=== PATIENT | female | born 1935 | race Caucasian/White ===

== ENCOUNTER 2016-09-22 14:44 | Emergency (ER) | payer MEDICARE ==
[2016-09-22 15:48] LABS: BILIRUBIN NEGATIVE (NEGATIVE); BLOOD NEGATIVE Ery/uL (NEGATIVE); CLARITY CLEAR (CLEAR); COLOR YELLOW (YELLOW); GLUCOSE (U) NORMAL (NORMAL); KETONE (U) NEGATIVE (NEGATIVE); LEUKOCYTES NEGATIVE Leu/uL (NEGATIVE); NITRITE NEGATIVE (NEGATIVE); PROTEIN NEGATIVE (NEGATIVE); UROBILINOGEN 0.2 mg/dL (0.2-1.0); pH 6.5 (5.0-9.0)
[2016-11-02] MEDS ORDERED: GARAMYCIN20 DROPS/M OS (12:45)
[2016-11-02] MEDS ORDERED: ZOLOFT100 M1 PO (12:45)
[2016-11-02] MEDS ORDERED: OMEPRAZOLE40 MG PO (12:45)
[2016-11-02] MEDS ORDERED: CARTIA XT180 MG PO (12:46)
[2016-11-02] MEDS ORDERED: VITAMIN B-121000 MC1 PO (12:46)
[2016-11-02] MEDS ORDERED: HYDROCODONE-APA1 TAB PO (12:46)
[2016-11-02] MEDS ORDERED: FEOSOL325 MG PO (12:46)
[2016-11-02] MEDS ORDERED: NEURONTIN600 MG PO (12:46)
[2016-11-02] MEDS ORDERED: BUSPIRONE HCL15 MG PO (12:47)
== END 2016-09-22 16:39 | disposition home or self-care (01) ==
LOC: FER 14:44
PROVIDERS: Emergency Medicine
DX: R30.0 Dysuria (principal); M16.11 Unilateral primary osteoarthritis, right hip; R35.0 Frequency of micturition; I10 Essential (primary) hypertension; I48.91 Unspecified atrial fibrillation; E78.5 Hyperlipidemia, unspecified; Z79.01 Long term (current) use of anticoagulants; Z79.899 Other long term (current) drug therapy; Z93.3 Colostomy status
CPT/HCPCS: 73502; 81003; 99283

== ENCOUNTER 2016-09-25 18:10 | Emergency (ER) | payer MEDICARE ==
[2016-11-02] MEDS ORDERED: OMEPRAZOLE40 MG PO (12:45)
[2016-11-02] MEDS ORDERED: GARAMYCIN20 DROPS/M OS (12:45)
[2016-11-02] MEDS ORDERED: ZOLOFT100 M1 PO (12:45)
[2016-11-02] MEDS ORDERED: VITAMIN B-121000 MC1 PO (12:46)
[2016-11-02] MEDS ORDERED: FEOSOL325 MG PO (12:46)
[2016-11-02] MEDS ORDERED: NEURONTIN600 MG PO (12:46)
[2016-11-02] MEDS ORDERED: CARTIA XT180 MG PO (12:46)
[2016-11-02] MEDS ORDERED: HYDROCODONE-APA1 TAB PO (12:46)
[2016-11-02] MEDS ORDERED: BUSPIRONE HCL15 MG PO (12:47)
== END 2016-09-25 20:37 | disposition home or self-care (01) ==
LOC: FER 18:10
DX: R04.0 Epistaxis (principal); I10 Essential (primary) hypertension; I48.91 Unspecified atrial fibrillation; J44.9 Chronic obstructive pulmonary disease, unspecified; Z79.01 Long term (current) use of anticoagulants; Z79.899 Other long term (current) drug therapy
CPT/HCPCS: J1030

== ENCOUNTER 2016-11-06 22:47 | Inpatient (IN) | payer MEDICARE ==
[~2016-11-06] VITALS: Ht 142.2 cm; Wt 68.9 kg
[~2016-11-06 22:47] MED LIST: BUSPIRONE HCL15 MG PO; CARTIA XT180 MG PO; FEOSOL325 MG PO; GARAMYCIN20 DROPS/M OS; HYDROCODONE-APA1 TAB PO; NEURONTIN600 MG PO; OMEPRAZOLE40 MG PO; VITAMIN B-121000 MC1 PO; ZOLOFT100 M1 PO
[2016-11-07 00:27] LABS: BASOPHIL 0.1 % (0-2); EOSINOPHIL 0 % (0-7); HCT 33.5 % (37.0-47.0); HGB 10.5 g/dl (12.5-16.0); LYMPHOCYTE 2.9 % (15-48); MCH 26.9 pg (25.0-31.0); MCHC 31.3 g/dL (32.0-36.0); MCV 85.9 fL (78.0-100.0); MPV 11.7 fL (6.0-9.5); PLT 190 K/uL (150-400); RDW 23.6 % (11.5-14.0); WBC 16.6 K/uL (4.0-10.5)
[2016-11-07 01:03] LABS: LACTIC ACID 1.7 mmol/L (0.5-2.2)
[2016-11-07 01:05] LABS: ALBUMIN 3.3 g/dL (3.4-4.8); BILIRUBIN - TOTAL 0.5 mg/dL (0.1-1.0); CREATININE 1.5 mg/dL (0.5-1.0); GLOBULIN (CALCULATION) 2.6 g/dL (2.2-4.2); POTASSIUM 3.3 mmol/L (3.5-5.1); TOTAL PROTEIN 5.9 g/dL (6.4-8.3)
[2016-11-07 01:36] LABS: TROPONIN T 0.034 ng/mL
[2016-11-07 03:40] LABS: BILIRUBIN NEGATIVE (NEGATIVE); BLOOD 2+ Ery/uL (NEGATIVE); CLARITY CLEAR (CLEAR); COLOR YELLOW (YELLOW); GLUCOSE (U) NORMAL (NORMAL); KETONE (U) NEGATIVE (NEGATIVE); LEUKOCYTES 3+ Leu/uL (NEGATIVE); NITRITE NEGATIVE (NEGATIVE); PROTEIN 2+ mg/dL (NEGATIVE); SPECIFIC GRAVITY 1.015 (1.001-1.030); pH 6.5 (5.0-9.0)
[2016-11-07 03:47] LABS: BACTERIA 3+
[2016-11-07 03:51] LABS: AMPHETAMINES NEGATIVE (NEGATIVE); BARBITURATES NEGATIVE (NEGATIVE); BENZODIAZEPINES NEGATIVE (NEGATIVE); COCAINE NEGATIVE (NEGATIVE); MARIJUANA (THC) POSITIVE (NEGATIVE); METHADONE NEGATIVE (NEGATIVE); TRICYCLIC ANTIDEPRESSANT NEGATIVE (NEGATIVE)
[2016-11-07 06:47] LABS: BASOPHIL 0.1 % (0-2); EOSINOPHIL 0.1 % (0-7); HCT 31.8 % (37.0-47.0); HGB 9.9 g/dl (12.5-16.0); LYMPHOCYTE 2.8 % (15-48); MCH 27.1 pg (25.0-31.0); MCHC 31.1 g/dL (32.0-36.0); MCV 87.1 fL (78.0-100.0); MONOCYTE 5.4 % (0-12); MPV 11.4 fL (6.0-9.5); NEUTROPHIL 91.6 % (41-80); PLT 184 K/uL (150-400); RBC 3.65 M/uL (4.20-5.40); RDW 23.7 % (11.5-14.0)
[2016-11-07 07:03] LABS: ALBUMIN 3.3 g/dL (3.4-4.8); BILIRUBIN - TOTAL 0.5 mg/dL (0.1-1.0); CREATININE 1.7 mg/dL (0.5-1.0); GLOBULIN (CALCULATION) 2.4 g/dL (2.2-4.2); POTASSIUM 3.5 mmol/L (3.5-5.1); TOTAL PROTEIN 5.7 g/dL (6.4-8.3)
[2016-11-08 04:15] LABS: HCT 27.8 % (37.0-47.0); HGB 8.5 g/dl (12.5-16.0); MCH 26.7 pg (25.0-31.0); MCHC 30.6 g/dL (32.0-36.0); MCV 87.4 fL (78.0-100.0); MPV 11.5 fL (6.0-9.5); RBC 3.18 M/uL (4.20-5.40); RDW 23.7 % (11.5-14.0); WBC 17.6 K/uL (4.0-10.5)
[2016-11-08 04:34] LABS: CREATININE 1.4 mg/dL (0.5-1.0); POTASSIUM 3.8 mmol/L (3.5-5.1)
[2016-11-09 03:54] LABS: HCT 29.2 % (37.0-47.0); HGB 8.8 g/dl (12.5-16.0); MCH 26.5 pg (25.0-31.0); MCHC 30.1 g/dL (32.0-36.0); MPV 12.2 fL (6.0-9.5); RBC 3.32 M/uL (4.20-5.40); RDW 23.6 % (11.5-14.0); WBC 11.9 K/uL (4.0-10.5)
[2016-11-09 04:21] LABS: CREATININE 1.1 mg/dL (0.5-1.0); POTASSIUM 4.7 mmol/L (3.5-5.1)
[2016-11-10 04:22] LABS: HCT 30.5 % (37.0-47.0); HGB 9.1 g/dl (12.5-16.0); MCH 26.8 pg (25.0-31.0); MCHC 29.8 g/dL (32.0-36.0); MCV 89.7 fL (78.0-100.0); MPV 11.8 fL (6.0-9.5); RBC 3.4 M/uL (4.20-5.40); RDW 23.7 % (11.5-14.0); WBC 9.1 K/uL (4.0-10.5)
[2016-11-10 04:34] LABS: CREATININE 1.4 mg/dL (0.5-1.0)
[2016-11-11 05:24] LABS: HCT 28.2 % (37.0-47.0); HGB 8.6 g/dl (12.5-16.0); MCHC 30.5 g/dL (32.0-36.0); MCV 88.4 fL (78.0-100.0); MPV 11.2 fL (6.0-9.5); RBC 3.19 M/uL (4.20-5.40); WBC 7.7 K/uL (4.0-10.5)
[2016-11-11 05:53] LABS: ALBUMIN 2.9 g/dL (3.4-4.8); BILIRUBIN - TOTAL 0.2 mg/dL (0.1-1.0); CREATININE 1.1 mg/dL (0.5-1.0); POTASSIUM 4.9 mmol/L (3.5-5.1); TOTAL PROTEIN 5.9 g/dL (6.4-8.3)
--- NOTE | 2016-11-12 01:24 | NUR ---
CARDIAC EVENT: @2317 -2317-PT CALLED OUT AND REPORTED "HEART FEELS LIKE IT'S FLUTTERING" -2319 VITALS OBTAINED AND PT ASSESSED. PT STATED "FEEL MY HEART RACING" AND GESTURES FOR ME TO PALPATE HER CHEST. BP 113/75 HR 145 RR 18 T 98.4 ORAL 02 SATS 98% PER 2LNC 2321-ORDERED STAT EKG, RESPIRATORY NOTIFIED 2323-MD NOTIFIED AND INFORMED OF INTERVENTIONS. MD ORDERED LOPRESSOR 5MG IVP X 1 DOSE NOW 2329-LOPRESSOR 5MG IVP GIVEN, HR DROPPED DOWN TO 73 AND WENT BACK UP AFTER ADMINISTRATION 2345-MD NOTIFIED THAT HR WAS GOING BACK UP 120s-130s, ORDER GIVEN TO TRANSFER TO TCU FOR FURTHER TREATMENT 2346-CALLED TCU AND INFORMED JEM MCKINLEY OF ADMIT/TRANSFER, BED OBTAINED (TCU1) 2348-CALLED TO GIVE REPORT, NURSE NOT READY 2353- CALLED TO GIVE ORDER FOR CARDIZEM 10MG IVP X1 DOSE UPON ARRIVAL TO TCU. 0016-JAIR RN (TCU) CALLED FOR REPORT 0025-PT TRANSFERRED TO TCU PER STAFF, PT STABLE AT THIS POINT
[2016-11-13 04:11] LABS: HCT 33.1 % (37.0-47.0); HGB 10.2 g/dl (12.5-16.0); MCH 26.7 pg (25.0-31.0); MCHC 30.8 g/dL (32.0-36.0); MCV 86.6 fL (78.0-100.0); MPV 10.7 fL (6.0-9.5); RBC 3.82 M/uL (4.20-5.40); RDW 23.2 % (11.5-14.0); WBC 9.1 K/uL (4.0-10.5)
[2016-11-13] MEDS ORDERED: PROTONIX 40MG T40 MG PO (12:06)
[2016-11-13] MEDS ORDERED: CEFTIN250 MG PO (12:07)
[2016-11-13] MEDS ORDERED: FLECAINIDE ACET50 MG PO (12:07)
[2016-11-13] MEDS ORDERED: ELIQUIS2.5 MG PO (12:07)
[2016-11-13] MEDS ORDERED: LASIX20 MG PO (12:47)
--- NOTE | 2016-11-13 14:23 | NUR ---
REPORT GIVEN TO KIARA ESQUEDA
--- NOTE | 2016-11-13 15:40 | NUR ---
[facility] HERE FOR TRANSPORT, REPORT CALLED EARLIER TO [facility]. PTS VSS NAD NOTED
== END 2016-11-13 15:40 | DRG 871 ==
LOC: FER 22:47 → FICU 11-07 04:35 → FTCU 11-08 08:00 → FMS 11-09 08:35 → FTCU 11-12 00:42
PROVIDERS: Allergy & Immunology; Emergency Medicine; Internal Medicine; Internal Medicine Cardiovascular Disease; ADMIT Internal Medicine
DX: A41.9 Sepsis, unspecified organism (principal); G93.41 Metabolic encephalopathy; R65.21 Severe sepsis with septic shock; I95.9 Hypotension, unspecified; K92.2 Gastrointestinal hemorrhage, unspecified; I11.0 Hypertensive heart disease with heart failure; I48.0 Paroxysmal atrial fibrillation; I50.30 Unspecified diastolic (congestive) heart failure; N39.0 Urinary tract infection, site not specified; B96.20 Unspecified Escherichia coli [E. coli] as the cause of diseases classified elsewhere; J44.9 Chronic obstructive pulmonary disease, unspecified; Z87.11 Personal history of peptic ulcer disease; D50.9 Iron deficiency anemia, unspecified; Z79.01 Long term (current) use of anticoagulants; Z66 Do not resuscitate; I10 Essential (primary) hypertension; D72.829 Elevated white blood cell count, unspecified
CPT/HCPCS: 36415; 36600; 70450; 71010; 80048; 80053; 80305; 81001; 82140; 82803; 82962; 83605; 83880; 84484; 85025; 87040; 87076; 87077; 87088; 87186; 93005; 94640; 97116; 97162; 97166; 97530; 97530-GP; 97535; C9113; J1170